=== PATIENT | female | born 1960 | race Caucasian/White ===

== ENCOUNTER 2016-10-18 17:11 | Emergency (ER) | payer MEDICAID ==
[~2016-10-18] VITALS: Ht 162.6 cm; Wt 59.0 kg
[~2016-10-18 17:11] MED LIST: ALPR2TAB7 PO; ASPI-612 PO; DEXT10TA7 PO; DIVA250T4 PO; HYDR-548 PO; PANT40TA2 PO; RISP0.5T8 PO; ZIPR20VI IM
[2016-10-18] MEDS ORDERED: LORAZEPAM 0.5 MG TABLET PO ONE (17:30)
--- NOTE | 2016-10-18 17:34 | NUR ---
Patient discharged to home in stable conditon. Written and verbal after care instructions given to patient. Patient verbalizes understanding of instructions.
[2016-10-18] MEDS ORDERED: LORAZEPAM 1 MG TABLET ONE (17:35)
[2016-10-18] MEDS ORDERED: ONDANSETRON ODT 4 MG TAB.RAPDIS ONE (17:41)
[2016-10-18] MEDS ORDERED: ONDANSETRON ODT 4 MG TAB.RAPDIS SL ONE (17:45)
== END 2016-10-18 17:34 | disposition home or self-care (01) ==
LOC: ER 17:13
DX: F41.9 Anxiety disorder, unspecified (principal); J32.9 Chronic sinusitis, unspecified; G43.909 Migraine, unspecified, not intractable, without status migrainosus; C73 Malignant neoplasm of thyroid gland; Z88.6 Allergy status to analgesic agent; Z79.82 Long term (current) use of aspirin
CPT/HCPCS: 99284; A4663; Q0162

== ENCOUNTER 2017-02-16 17:37 | Emergency (ER) | payer MEDICAID ==
[~2017-02-16] VITALS: Ht 162.6 cm; Wt 61.2 kg
--- NOTE | 2017-02-16 18:16 | NUR ---
Pt is resting in bed w/ both eyes closed, NAD noted.
--- NOTE | 2017-02-16 19:05 | NUR ---
Received report from AGUEDA Pollock
--- NOTE | 2017-02-16 19:30 | NUR ---
Seen patient resting comfortably.
[2017-02-16] MEDS ORDERED: IV NORMAL SALINE 1000 ML BAG IV ONE (20:15)
[2017-02-16 20:16] LABS: BASOPHILS # (AUTO) 0.1 K/uL (0.0-8.0); BASOPHILS % (AUTO) 1.1 % (0.0-2.0); EOSINOPHILS # (AUTO) 0.2 K/uL (0.0-0.7); HEMATOCRIT 36.1 % (37-47); HEMOGLOBIN 12.6 G/DL (12.0-16.0); LYMPHOCYTES # (AUTO) 1.8 K/UL (0.8-4.8); LYMPHOCYTES % (AUTO) 34.7 % (20.5-51.5); MEAN CORPUSCULAR HEMOGLOBIN 31.1 UUG (27.0-31.0); MEAN CORPUSCULAR HGB CONC 35 g/dL (32.0-37.0); MEAN CORPUSCULAR VOLUME 89.2 FL (81.0-99.0); MONOCYTES # (AUTO) 0.4 K/UL (0.1-1.30); MONOCYTES % (AUTO) 7.1 % (0.0-11.0); NEUTROPHILS # (AUTO) 2.7 K/UL (1.8-8.9); NEUTROPHILS % (AUTO) 53.1 % (38.5-71.5); PLATELET COUNT (AUTO) 327 K/UL (150-450); RED BLOOD CELL COUNT(AUTO) 4.05 MIL/UL (4.2-5.4); WHITE BLOOD COUNT (AUTO) 5.2 K/UL (4.0-11.2)
[2017-02-16 20:25] LABS: CREATININE 0.7 mg/dL (0.6-1.3); POTASSIUM 3.8 mmol/L (3.5-5.1)
[2017-02-16 20:39] LABS: BILIRUBIN,DIRECT 0.1 mg/dL (0.0-0.2); BILIRUBIN,TOTAL 0.5 mg/dL (0.2-1.0); TOTAL PROTEIN, SERUM 6.9 g/dL (6.4-8.2)
[2017-02-16 21:00] LABS: *BILIRUBIN,URIN NEGATIVE (NEGATIVE); *BLOOD, URINE Trace-intact (NEGATIVE); *CLARITY,URINE CLEAR (CLEAR); *COLOR,URINE YELLOW (YELLOW); *KETONES,URINE NEGATIVE (NEGATIVE); *PROTEIN,URINE NEGATIVE (NEGATIVE); *UROBILINOGEN,URINE 0.2 E.U./dl (NORMAL); LEUKOCYTE ESTERASE ,URINE NEGATIVE (NEGATIVE); NITRITE, URINE NEGATIVE (NEGATIVE); UGLUCOSE NEGATIVE (NEGATIVE)
--- NOTE | 2017-02-16 21:06 | NUR ---
Multiple attempts for IV.NS ordered, awaits for IV line.
[2017-02-16 21:10] LABS: BACTERIA,URINE NONE SEEN /HPF (NONE SEEN); RBC,URINE 0-3 /HPF (0-3); SQUAMOUS EPITHELIAL CELL,UR FEW /HPF (NONE SEEN); WBC,URINE 0-3 /HPF (0-3)
--- NOTE | 2017-02-16 21:48 | NUR ---
Call placed to Dr. Grewal (ortho), he will be paged.
--- NOTE | 2017-02-16 22:00 | NUR ---
Transferred pt to room 209 via marly palumbo/ Andreas Ba. Pt asking that he's still having withdrawal symptoms despite of Ativan 1mg, he said that it helped a little bit after the Ativan 1mg/IM shot. Addendum: 02/16/17 at 2236 by CDELAFUENT Error, wrong patient.
--- NOTE | 2017-02-17 | NUR ---
Discharge instructions provided, however pt refused to sign. aware.
--- NOTE | 2017-02-17 01:27 | NUR ---
Patient discharged to home in stable conditon. Written and verbal after care instructions given including prescriptions. Patient verbalizes understanding of instructions.
== END 2017-02-17 01:27 | disposition other institution (70) ==
LOC: ER 17:38
DX: M25.551 Pain in right hip (principal); R10.9 Unspecified abdominal pain; R11.2 Nausea with vomiting, unspecified; R19.7 Diarrhea, unspecified; G43.909 Migraine, unspecified, not intractable, without status migrainosus; F41.9 Anxiety disorder, unspecified; Z85.850 Personal history of malignant neoplasm of thyroid; Z79.82 Long term (current) use of aspirin; Z88.6 Allergy status to analgesic agent
CPT/HCPCS: 36415; 70030-TC; 71010; 83690; 85025; 85730; 93005; A4663; J7030

== ENCOUNTER 2017-03-15 00:05 | Emergency (ER) | payer MEDICAID ==
[~2017-03-15 00:05] MED LIST changes: -DEXT10TA7 PO; -DIVA250T4 PO; -PANT40TA2 PO; -RISP0.5T8 PO; -ZIPR20VI IM
--- NOTE | 2017-03-15 01:12 | NUR ---
CALLED FOR PT NO ANSWER LWBT
== END 2017-03-15 01:18 | disposition left against medical advice (07) ==
LOC: ER 00:08
DX: M79.1 Myalgia (principal); Z53.21 Procedure and treatment not carried out due to patient leaving prior to being seen by health care provider

== ENCOUNTER 2017-06-05 01:18 | Emergency (ER) | payer MEDICAID ==
[~2017-06-05] VITALS: Ht 162.6 cm; Wt 59.0 kg
[2017-06-05] MEDS ORDERED: LIDOCAINE HCL 2% 20 ML VIAL TP ONE (02:00)
[2017-06-05] MEDS ORDERED: ONDANSETRON 4 MG/2 ML VIAL IM ONE (02:00)
[2017-06-05] MEDS ORDERED: SULFAMETH/TRIMETH 800/160 MG TABLET PO ONE (02:00)
[2017-06-05] MEDS ORDERED: MORPHINE SULFATE 4 MG/1 ML DISP.SYRIN IM ONE (02:00)
[2017-06-05] MEDS ORDERED: MORPHINE SULFATE 4 MG/1 ML DISP.SYRIN ONE (02:13)
[2017-06-05] MEDS ORDERED: ONDANSETRON 4 MG/2 ML VIAL ONE (02:13)
[2017-06-05] MEDS ORDERED: SULFAMETH/TRIMETH 800/160 MG TABLET ONE (02:13)
[2017-06-05] MEDS ORDERED: NEOMY/BACITRA/POLYMYXIN B OINT UD PACKET TP ONE (02:45)
--- NOTE | 2017-06-05 03:01 | NUR ---
Patient discharged at this time. However, patient drover herself to the ER and received narcotic medication. Patient will remain in room until safe to go home in stable conditon. Written and verbal after care instructions given. Patient verbalizes understanding of instructions.
--- NOTE | 2017-06-05 06:20 | NUR ---
Patient discharged to home in stable conditon. Written and verbal after care instructions given. Patient verbalizes understanding of instructions.
== END 2017-06-05 06:21 | disposition home or self-care (01) ==
LOC: ER 01:20
DX: L03.011 Cellulitis of right finger (principal); M25.551 Pain in right hip; Z79.82 Long term (current) use of aspirin; Z85.850 Personal history of malignant neoplasm of thyroid; F90.9 Attention-deficit hyperactivity disorder, unspecified type; G43.909 Migraine, unspecified, not intractable, without status migrainosus
CPT/HCPCS: 10060; 96372 ×2; 99284; A4663; J2270; J2405

== ENCOUNTER 2017-10-31 07:29 | Emergency (ER) | payer MEDICAID ==
[~2017-10-31] VITALS: Ht 162.6 cm; Wt 59.0 kg
--- NOTE | 2017-10-31 09:00 | NUR ---
Patient is resting comfortably in bed with eyes closed. Lights dimmed. Extra pillows & blankets provided.
--- NOTE | 2017-10-31 09:41 | NUR ---
Patient ambulated briskly to the bathroom in the waiting room and to the bathroom near the nurses' station. Patient was couselled extensively about her need to follow up with her PMD & ortho/bone doctor regarding her chronic pain issues.
--- NOTE | 2017-10-31 09:44 | NUR ---
Patient discharged to home in stable conditon. Written and verbal after care instructions given to patient. Patient verbalizes understanding of instructions regarding skin infection or cellulitis. Extensive discussion was given earlier to patient: follow-up with her PMD & ortho/bone doctor. Patient ambulated to ER waiting room with steady gait.
[2017-12-30] MEDS ORDERED: METO-357 PO (03:45)
[2017-12-30] MEDS ORDERED: ATOR10TA PO (03:45)
[2017-12-30] MEDS ORDERED: CLON0.5T4 PO (03:45)
[2017-12-30] MEDS ORDERED: DULO60CA45 PO (03:45)
[2017-12-30] MEDS ORDERED: LISI2.5T2 PO (03:45)
[2017-12-30] MEDS ORDERED: CEPH500T PO (03:45)
[2017-12-30] MEDS ORDERED: ONDA4TAB5 PO (03:45)
[2017-12-30] MEDS ORDERED: RIVA10TA PO (03:45)
== END 2017-10-31 09:59 | disposition home or self-care (01) ==
LOC: ER 07:31
DX: M25.572 Pain in left ankle and joints of left foot (principal); L03.116 Cellulitis of left lower limb; G89.29 Other chronic pain; M54.9 Dorsalgia, unspecified; Z88.5 Allergy status to narcotic agent; Z79.82 Long term (current) use of aspirin; Z79.891 Long term (current) use of opiate analgesic; Z79.899 Other long term (current) drug therapy
CPT/HCPCS: 73630; 93971; 99284; A4663

== ENCOUNTER 2017-12-09 21:06 | Emergency (ER) | payer MEDICAID ==
[~2017-12-09] VITALS: Ht 167.6 cm; Wt 68.0 kg
--- NOTE | 2017-12-09 22:20 | NUR ---
EDUARDO CHEN AT BEDSIDE FOR MSE.
[2017-12-09] MEDS ORDERED: MORPHINE SULFATE 2 MG/1 ML DISP.SYRIN IV ONE (22:30)
--- NOTE | 2017-12-09 22:38 | NUR ---
lat at bedside for blood draw.
--- NOTE | 2017-12-09 22:39 | NUR ---
XRAY AT BEDSIDE
[2017-12-09 22:49] LABS: BASOPHILS # (AUTO) 0.1 K/uL (0.0-8.0); BASOPHILS % (AUTO) 1.1 % (0.0-2.0); EOSINOPHILS # (AUTO) 0.1 K/uL (0.0-0.7); EOSINOPHILS % (AUTO) 1.4 % (0.0-7.0); HEMATOCRIT 37.7 % (31.2-41.9); HEMOGLOBIN 13.1 g/dL (10.9-14.3); LYMPHOCYTES # (AUTO) 1.4 K/uL (20.0-40.0); LYMPHOCYTES % (AUTO) 19.6 % (20.5-51.5); MEAN CORPUSCULAR HEMOGLOBIN 30.9 uug (24.7-32.8); MEAN CORPUSCULAR HGB CONC 35 g/dL (32.3-35.6); MEAN CORPUSCULAR VOLUME 88.8 fL (75.5-95.3); MONOCYTES # (AUTO) 0.5 K/uL (2.0-10.0); MONOCYTES % (AUTO) 6.7 % (0.0-11.0); NEUTROPHILS % (AUTO) 71.2 % (38.5-71.5); PLATELET COUNT (AUTO) 442 K/uL (179-408); RED BLOOD CELL COUNT(AUTO) 4.24 MIL/uL (3.63-4.92); WHITE BLOOD COUNT (AUTO) 7.1 K/uL (3.8-11.8)
[2017-12-09 22:52] LABS: CREATININE 0.9 mg/dL (0.6-1.3); POTASSIUM 3.7 mmol/L (3.5-5.1)
--- NOTE | 2017-12-09 23:10 | NUR ---
PT RESTING IN BED IN LOWEST POSITION. WHEELS LOCKED. CALL LIGHT WITHIN REACH. VSS.
[2017-12-09] MEDS ORDERED: MORPHINE SULFATE 4 MG/1 ML DISP.SYRIN ONE (23:36)
[2017-12-10] MEDS ORDERED: MAGNESIUM HYDROXIDE 30 ML LIQUID UDC PO PRN
[2017-12-10] MEDS ORDERED: ACETAMINOPHEN 325 MG TABLET PO PRN
[2017-12-10] MEDS ORDERED: ONDANSETRON 4 MG/2 ML VIAL IV PRN
[2017-12-10] MEDS ORDERED: MORPHINE SULFATE 2 MG/1 ML DISP.SYRIN IV PRN
[2017-12-10] MEDS ORDERED: HYDROCODONE/APAP 10-325 MG TABLET PO PRN
--- NOTE | 2017-12-10 00:29 | NUR ---
RECEIVED CALL FROM BUDDY STONE PLANER DL REGARDING PT TRANSFER TO [facility]. PER BUDDY, SHE REQUESTED MED/SURG BED. DR MILLAN TO CALL DR. MORIN. AWAITING CALL BACK FROM BUDDY
--- NOTE | 2017-12-10 01:23 | NUR ---
PT IS RESTING COMFORTABLY IN BED WITH EYES CLOSED. NO ACUTE DISTRESS NOTED. VSS. AWAITING CALL BACK FROM BUDDY RAIL CAR WELDER REGARDING PT TRANSFER TO [facility].
--- NOTE | 2017-12-10 02:07 | NUR ---
PT RESTING COMFORTABLY IN BED WITH EYES CLOSED. VSS. SA02 99% RA.
--- NOTE | 2017-12-10 02:23 | NUR ---
RECEIVED CALL FROM BUDDY [employer]ENDER (DL) REGARDING PT TRANSFER TO [facility]. PT WILL BE ADMITTED TO BED 214A, NURSE WILL BE DERRICK. PHONE# FOR REPORT IS [phone]. AWAITING CALL FROM DR. MILLAN TO SPEAK WITH DR. MORIN AND AWAITING ETA FOR TRANSPORTATION.
--- NOTE | 2017-12-10 02:35 | NUR ---
DR. MILLAN ([facility]) TALKING TO DR MORIN
--- NOTE | 2017-12-10 02:53 | NUR ---
[facility] TRANSPORT ETA 45 MIN
--- NOTE | 2017-12-10 03:24 | NUR ---
GAVE REPORT TO MATTY ROMEO AT [facility].
[2017-12-10] MEDS ORDERED: MORPHINE SULFATE 4 MG/1 ML DISP.SYRIN ONE (04:05)
[2017-12-10] MEDS ORDERED: MORPHINE SULFATE 4 MG/1 ML DISP.SYRIN IV ONE (04:15)
--- NOTE | 2017-12-10 04:36 | NUR ---
Patient Tranfers to [facility]. Physician: Dr. Fuentes Location: [address] [place] [address] AGUEDA Patient discharged to home in stable conditon. Written and verbal after care instructions given. Patient verbalizes understanding of instructions. Pt picked up by lisa Woo at this time. Pt VSS. No acute distress noted. All belongings with pt.
--- NOTE | 2017-12-10 04:37 | NUR ---
called Phlyicia ROMEO at [facility] regarding update report. pt has IV on 20 gauge right forearm and received 4 mg morphine IV before transfer.
[2017-12-30] MEDS ORDERED: CLON0.5T4 PO (03:45)
[2017-12-30] MEDS ORDERED: METO-357 PO (03:45)
[2017-12-30] MEDS ORDERED: DULO60CA45 PO (03:45)
[2017-12-30] MEDS ORDERED: ATOR10TA PO (03:45)
[2017-12-30] MEDS ORDERED: LISI2.5T2 PO (03:45)
[2017-12-30] MEDS ORDERED: CEPH500T PO (03:45)
[2017-12-30] MEDS ORDERED: RIVA10TA PO (03:45)
[2017-12-30] MEDS ORDERED: ONDA4TAB5 PO (03:45)
== END 2017-12-10 04:41 | disposition short-term general hospital (02) ==
LOC: ER 21:08
DX: M16.11 Unilateral primary osteoarthritis, right hip (principal); F90.9 Attention-deficit hyperactivity disorder, unspecified type; Z79.82 Long term (current) use of aspirin; Z85.850 Personal history of malignant neoplasm of thyroid; Z88.5 Allergy status to narcotic agent; G43.909 Migraine, unspecified, not intractable, without status migrainosus
CPT/HCPCS: 36415; 71045; 72170; 73502; 85025; 85730; 93005; A4663; J2270

== ENCOUNTER 2019-05-08 23:36 | Emergency (ER) | payer MEDICAID ==
[~2019-05-08] VITALS: Ht 162.6 cm; Wt 59.0 kg
[~2019-05-08 23:36] MED LIST changes: -ALPR2TAB7 PO; -ASPI-612 PO; +ATOR10TA PO; +CEPH500T PO; +CLON0.5T4 PO; +DULO60CA45 PO; +HYDR-4354 PO; -HYDR-548 PO; +LISI2.5T2 PO; +METO-357 PO; +ONDA4TAB5 PO; +RIVA10TA PO
[2019-05-09 01:10] VITALS: BP 125/70
== END 2019-05-09 01:11 | disposition home or self-care (01) ==
LOC: ER 23:37
DX: S50.862A Insect bite (nonvenomous) of left forearm, initial encounter (principal); G43.909 Migraine, unspecified, not intractable, without status migrainosus; F41.9 Anxiety disorder, unspecified; Z88.5 Allergy status to narcotic agent; Z79.899 Other long term (current) drug therapy; W57.XXXA Bitten or stung by nonvenomous insect and other nonvenomous arthropods, initial encounter; Y93.89 Activity, other specified; Y92.89 Other specified places as the place of occurrence of the external cause; Y99.8 Other external cause status
CPT/HCPCS: 86625; 87046; A4663

== ENCOUNTER 2021-04-25 11:58 | Emergency (ER) | payer MEDICAID ==
[~2021-04-25] VITALS: Ht 162.6 cm; Wt 61.2 kg
[~2021-04-25 11:58] MED LIST changes: +LISI2.5T14 PO; -LISI2.5T2 PO
--- NOTE | 2021-04-25 12:58 | NUR ---
Female customer service voice accompanied female patient for (Dr Farnsworth).
[2021-04-25] MEDS ORDERED: IBUP-1955 PO (13:09)
[2021-04-25 13:11] VITALS: BP 135/74
--- NOTE | 2021-04-25 13:20 | NUR ---
Patient discharged to home in stable condition. Written and verbal after care instructions given. Patient verbalizes understanding of instructions. Stressed follow up or return to ER for worsening s/s.
== END 2021-04-25 13:20 | disposition home or self-care (01) ==
LOC: ER 11:58
DX: A63.0 Anogenital (venereal) warts (principal); Z96.641 Presence of right artificial hip joint; Z85.850 Personal history of malignant neoplasm of thyroid; F90.9 Attention-deficit hyperactivity disorder, unspecified type; F41.9 Anxiety disorder, unspecified; Z79.899 Other long term (current) drug therapy
CPT/HCPCS: A4663

== ENCOUNTER 2021-05-06 09:12 | Emergency (ER) | payer MEDICAID ==
[~2021-05-06] VITALS: Ht 162.6 cm; Wt 61.2 kg
[~2021-05-06 09:12] MED LIST changes: +IBUP-1955 PO
[2021-05-06] MEDS ORDERED: ONDA4TAB5 PO (09:34)
[2021-05-06] MEDS ORDERED: ACET-2154 PO (09:34)
--- NOTE | 2021-05-06 09:36 | NUR ---
Pt ambulated with steady gait out of the ER after MSE. Pt did not want to wait for her written ACI. Pt was given verbal ACI by .
== END 2021-05-06 09:51 | disposition home or self-care (01) ==
LOC: ER 09:12
DX: N90.89 Other specified noninflammatory disorders of vulva and perineum (principal); R10.2 Pelvic and perineal pain; Z96.641 Presence of right artificial hip joint; Z85.850 Personal history of malignant neoplasm of thyroid; Z87.42 Personal history of other diseases of the female genital tract; F41.9 Anxiety disorder, unspecified; Z79.899 Other long term (current) drug therapy; Z79.01 Long term (current) use of anticoagulants; Z87.19 Personal history of other diseases of the digestive system
CPT/HCPCS: A4663

== ENCOUNTER 2021-05-17 04:50 | Emergency (ER) | payer MEDICAID ==
[~2021-05-17] VITALS: Ht 162.6 cm; Wt 61.2 kg
[~2021-05-17 04:50] MED LIST changes: +ACET-2154 PO
--- NOTE | 2021-05-17 04:55 | NUR ---
Pt brought back to room ED2A by managing member Bon, after presenting to the waiting room with extreme pain of pubic region. Pt placed on gurney in pos of comfort awaitng EDMD for eval.
--- NOTE | 2021-05-17 04:59 | NUR ---
LASHAUN Escobar at pt bedside for eval of pt condition.
--- NOTE | 2021-05-17 05:05 | NUR ---
EDMD at bedside for pelvic exam saparoned by EDRN Nurse
[2021-05-17] MEDS ORDERED: ONDANSETRON ODT 4 MG TAB.RAPDIS SL ONE (05:15)
[2021-05-17] MEDS ORDERED: HYDROMORPHONE HCL 2 MG TABLET PO ONE (05:15)
[2021-05-17] MEDS ORDERED: DOXYCYCLINE HYCLATE 100 MG TABLET PO ONE (05:15)
[2021-05-17] MEDS ORDERED: AZITHROMYCIN 250 MG TABLET PO ONE (05:15)
[2021-05-17] MEDS ORDERED: MORP30TA7 PO (05:16)
[2021-05-17] MEDS ORDERED: DOXY-326 PO (05:16)
--- NOTE | 2021-05-17 05:25 | NUR ---
EDMD ordered pain medication 4mg dilaudid PO, anti-nausea med 4mg Zofran PO, and two abx zithromax and Doxycycline PO. Pt swallowed all medication without difficulty. Pain will be reassessed in 20 min.
[2021-05-17] MEDS ORDERED: HYDROMORPHONE HCL 2 MG TABLET ONE (05:27)
[2021-05-17] MEDS ORDERED: AZITHROMYCIN 250 MG TABLET ONE (05:28)
[2021-05-17] MEDS ORDERED: DOXYCYCLINE HYCLATE 100 MG TABLET ONE (05:28)
[2021-05-17] MEDS ORDERED: ONDANSETRON ODT 4 MG TAB.RAPDIS ONE (05:29)
--- NOTE | 2021-05-17 05:36 | NUR ---
EDMD Dr. Escobar completed DC paperwork. Waiting 30 min to ensure no reaction to medication before DCing pt home with two prescribtions and some aftercare instructions.
--- NOTE | 2021-05-17 05:55 | NUR ---
Pt's pain reassessed, states that she is starting to feel some relief. No s/sx of reaction present. Pt given DC instructions and prescribtion info. and pt confirmed understanding of aftercare. 158/91, 99%, 20rpm, 82bpm, pt afebrile with good color and temp. Slightly desheveled appearance. Pt's condition seems to be noticably improved. Still complaining of moderate pain. No s/sx of distress present. Denies any nausea.
[2021-05-17 06:06] VITALS: BP 159/88
== END 2021-05-17 05:55 | disposition home or self-care (01) ==
LOC: ER 04:54
DX: N76.6 Ulceration of vulva (principal); R03.0 Elevated blood-pressure reading, without diagnosis of hypertension; Z96.641 Presence of right artificial hip joint; Z88.5 Allergy status to narcotic agent; F41.9 Anxiety disorder, unspecified; F90.9 Attention-deficit hyperactivity disorder, unspecified type; Z85.850 Personal history of malignant neoplasm of thyroid; G89.4 Chronic pain syndrome; Z79.82 Long term (current) use of aspirin
CPT/HCPCS: A4663; Q0144; Q0162

== ENCOUNTER 2021-07-30 19:44 | Emergency (ER) | payer MEDICAID, OTHER ==
[~2021-07-30 19:44] MED LIST changes: +DOXY-326 PO; +MORP30TA7 PO
--- NOTE | 2021-07-30 20:22 | NUR ---
PATIENT WAS CALLED TO BE TRIAGED BUT WAS NOT PRESENT IN THE WAITING ROOM OR OUTSIDE OF ER.
--- NOTE | 2021-07-30 20:30 | NUR ---
PATIENT WAS CALLED TO BE TRIAGED BUT WAS NOT PRESENT INT THE WAITING ROOM OR OUTSIDE OF ER.
--- NOTE | 2021-07-30 20:40 | NUR ---
PATIENT WAS CALLED TO BE TRAIGED BUT WAS NOT PRESENT IN THE WAITING ROOM OR OUTSIDE OF ER. PATIENT WAS NOT TRIAGED OR SEEN BY ERMD.
== END 2021-07-30 20:30 | disposition left against medical advice (07) ==
LOC: ER 19:47
DX: Z53.21 Procedure and treatment not carried out due to patient leaving prior to being seen by health care provider (principal)

== ENCOUNTER 2021-08-01 03:26 | Emergency (ER) | payer MEDICAID ==
[~2021-08-01] VITALS: Ht 162.6 cm; Wt 59.0 kg
--- NOTE | 2021-08-01 04:13 | NUR ---
pt placed in room 1 b, pt ambulatory in for eye issue to left side.
[2021-08-01] MEDS ORDERED: LIDOCAINE HCL 1% 20 ML VIAL ONE (04:25)
--- NOTE | 2021-08-01 04:34 | NUR ---
Dr. Farnsworth at bedside to do procedure.
[2021-08-01] MEDS: LIDOCAINE HCL 1% 20 ML VIAL IJ ONE (04:35)
[2021-08-01] MEDS ORDERED: NEOMY/BACITRA/POLYMYXIN B OINT UD PACKET TP ONE (04:47)
[2021-08-01] MEDS ORDERED: SULF1TAB48 PO (05:04)
[2021-08-01] MEDS: SULFAMETH/TRIMETH 800/160 MG TABLET PO ONE (05:08)
[2021-08-01] MEDS: ACETAMINOPHEN ES 500 MG TABLET PO ONE (05:08)
[2021-08-01] MEDS: MORPHINE SULFATE 4 MG/1 ML DISP.SYRIN IM ONE (05:41)
[2021-08-01] MEDS ORDERED: MORPHINE SULFATE 4 MG/1 ML DISP.SYRIN ONE (05:44)
--- NOTE | 2021-08-01 06:40 | NUR ---
Patient discharged to home in stable condition WITH FRIEND TAKING PATIENT HOME. Written and verbal after care instructions given. Patient verbalizes understanding of instructions. Stressed follow up or return to ER for worsening s/s.
[2021-08-01 06:41] VITALS: BP 160/95
== END 2021-08-01 06:41 | disposition home or self-care (01) ==
LOC: ER 03:30
DX: L02.01 Cutaneous abscess of face (principal); L03.213 Periorbital cellulitis; Z88.8 Allergy status to other drugs, medicaments and biological substances; Z79.899 Other long term (current) drug therapy
CPT/HCPCS: 10060; 96372; 99284; J2270; J3490; A9150

== ENCOUNTER 2021-08-03 00:53 | Emergency (ER) | payer MEDICAID, OTHER ==
[~2021-08-03] VITALS: Ht 162.6 cm; Wt 59.0 kg
[~2021-08-03 00:53] MED LIST changes: +SULF1TAB48 PO
--- NOTE | 2021-08-03 03:01 | NUR ---
Note linwoodone in EDM - 08/03/21 at 0302 by BELLO Patient discharged to home in stable condition. Written and verbal after care instructions given. Patient verbalizes understanding of instructions. Stressed follow up or return to ER for worsening s/s. Patient out of ER with steady gait, no acute signs of distress, VSS, all belongings taken.
[2021-08-03 03:02] VITALS: BP 138/72
== END 2021-08-03 02:02 | disposition home or self-care (01) ==
LOC: ER 00:58
DX: Z48.817 Encounter for surgical aftercare following surgery on the skin and subcutaneous tissue (principal); L02.01 Cutaneous abscess of face; Z96.641 Presence of right artificial hip joint; Z85.850 Personal history of malignant neoplasm of thyroid; Z79.899 Other long term (current) drug therapy; R03.0 Elevated blood-pressure reading, without diagnosis of hypertension
CPT/HCPCS: A4663